=== PATIENT | male | born 1965 | race Caucasian/White ===

== ENCOUNTER 2016-09-08 17:10 | Emergency (ER) | payer OTHER ==
[~2016-09-08] VITALS: Ht 167.6 cm; Wt 130.0 kg
[~2016-09-08 17:10] MED LIST: DULOXETINE HCL30 MG PO; FORTAMET500 M1; GLIMEPIRIDE1 MG PO; LISINOPRIL-HCT1 EAC3 PO; LISINOPRIL10 MG PO; METFORMIN HCL1000 M1 PO; MIRTAZAPINE15 MG PO; MOBIC7.5 MG PO; ONGLYZA5 MG PO; TIZANIDINE HCL2 MG PO; VALIUM10 MG PO
[2016-09-08 17:37] LABS: POINT-OF-CARE METER ID UU14100415
[2016-09-08] MEDS ORDERED: SEROQUEL100 MG PO (17:43)
[2016-09-08 18:14] LABS: EOSINOPHIL (%) 3.8 % (0-5); EOSINOPHIL COUNT 0.4 K/uL (0-0.3); HEMATOCRIT 41.4 % (38.0-50.0); IMMATURE GRANULOCYTE (%) 0.3 % (0.0-0.7); IMMATURE GRANULOCYTE COUNT 0.3 K/uL; LYMPHOCYTE COUNT 1.4 K/uL (1.0-2.8); MCH 30.7 PG (29.0-34.0); MCHC 34.1 G/DL (30.0-36.0); MCV 90.2 FL (86-99); MONOCYTE (%) 10.4 % (3-12); MONOCYTE COUNT 1.1 K/uL (0-0.8); NEUTROPHIL (%) 71.5 % (45-76); NEUTROPHIL COUNT 7.4 K/uL (1.8-6.4); PLATELET COUNT 256 K/uL (156-360); RBC DIS.WIDTH-CV 13.4 % (11.8-14.6); RBC DIS.WIDTH-SD 43.5 % (39-53); RED BLOOD COUNT 4.59 M/uL (4.00-5.50); WHITE BLOOD COUNT 10.3 K/uL (4.1-10.2)
[2016-09-08 18:26] LABS: CHLORIDE 100 mEq/L (99-109); POTASSIUM 4.3 mEq/L (3.7-5.4); SODIUM 139 mEq/L (136-147)
[2016-09-08 18:27] LABS: GLUCOSE 143 mg/dL (70-99)
[2016-09-08 18:29] LABS: ANION GAP 12 MEQ/L (2-14)
[2016-09-08 18:31] LABS: GFR ESTIMATE (CALCULATED) > 59 mL/min/
[2016-09-08 18:32] LABS: UREA NITROGEN (BUN) 12 mg/dL (9-23)
[2016-09-08 18:36] LABS: TROP-I INTERPRETATION NEGATIVE; TROPONIN-I < 0.01 ng/mL (0.0-0.30)
[2016-09-08 19:58] LABS: ADD MIUA? NO; BILIRUBIN NEGATIVE; BLOOD NEGATIVE; COLOR YELLOW ((YELLOW)); GLUCOSE (STRIP) NEGATIVE; KETONES 5; LEUKOCYTES NEGATIVE; NITRITE NEGATIVE; PROTEIN (STRIP) NEGATIVE
[2016-09-08] MEDS ORDERED: INDOCIN50 MG PO (22:34)
[2016-09-08] MEDS ORDERED: VALIUM10 MG PO (22:34)
[2016-09-08 22:45] VITALS: BP 105/66
== END 2016-09-08 22:47 | disposition home or self-care (01) ==
LOC: EME 17:10
PROVIDERS: Emergency Medicine
DX: E11.649 Type 2 diabetes mellitus with hypoglycemia without coma (principal); R25.2 Cramp and spasm; I10 Essential (primary) hypertension; G89.29 Other chronic pain; Z87.442 Personal history of urinary calculi; K21.9 Gastro-esophageal reflux disease without esophagitis; Z79.84 Long term (current) use of oral hypoglycemic drugs
CPT/HCPCS: 71010; 80048; 81003; 82948; 84484; 85025; 99281; 99285; J1885; J3360; J7040

== ENCOUNTER 2017-02-15 15:04 | Inpatient (IN) | payer OTHER ==
[~2017-02-15] VITALS: Ht 175.3 cm; Wt 131.7 kg
[~2017-02-15 15:04] MED LIST changes: +INDOCIN50 MG PO; +SEROQUEL300 MG PO
[2017-02-15] MEDS ORDERED: VALIUM10 MG PO (15:26)
[2017-02-15] MEDS ORDERED: BUSPAR15 MG PO (15:26)
[2017-02-15 15:53] LABS: HEMATOCRIT 41.7 % (38.0-50.0); MCH 29.3 PG (29.0-34.0); MCHC 32.4 G/DL (30.0-36.0); MCV 90.5 FL (86-99); MEAN PLAT.VOLUME 10.1 uM^3 (9.0-12.4); PLATELET COUNT 230 K/uL (156-360); RBC DIS.WIDTH-CV 13.5 % (11.8-14.6); RBC DIS.WIDTH-SD 44.6 % (39-53); RED BLOOD COUNT 4.61 M/uL (4.00-5.50); WHITE BLOOD COUNT 7.6 K/uL (4.1-10.2)
[2017-02-15 16:03] LABS: CHLORIDE 97 mEq/L (99-109); POTASSIUM 4.3 mEq/L (3.7-5.4); SODIUM 136 mEq/L (136-147)
[2017-02-15 16:05] LABS: GLUCOSE 117 mg/dL (70-99)
[2017-02-15 16:07] LABS: ANION GAP 12 MEQ/L (2-14); TOTAL BILIRUBIN 0.5 mg/dL (0.0-1.0)
[2017-02-15 16:09] LABS: ALKALINE PHOSPHATASE 76 IU/L (3-129); GFR ESTIMATE (CALCULATED) > 59 mL/min/
[2017-02-15 16:10] LABS: UREA NITROGEN (BUN) 17 mg/dL (9-23)
[2017-02-15 16:11] LABS: DIRECT BILIRUBIN 0.2 mg/dL (0.0-0.3)
[2017-02-15 16:12] LABS: LIPASE 827 U/L (1.0-51.0)
[2017-02-15 16:15] LABS: TROP-I INTERPRETATION NEGATIVE; TROPONIN-I 0.02 ng/mL (0.0-0.30)
[2017-02-15 17:12] LABS: AMYLASE 49 IU/L (1-118)
[2017-02-15] MEDS ORDERED: CYMBALTA60 MG PO (17:21)
[2017-02-15] MEDS ORDERED: CYMBALTA30 MG PO (17:21)
[2017-02-15] MEDS ORDERED: CEPHALEXIN500 MG PO (17:22)
[2017-02-15] MEDS ORDERED: AMARYL1 MG PO (17:22)
[2017-02-15] MEDS ORDERED: BACTRIM,SEPT1 TABLET PO (17:23)
[2017-02-15] MEDS ORDERED: ATARAX,VISTARIL25 MG PO (17:23)
[2017-02-15] MEDS ORDERED: ALEVE220 MG PO (17:24)
[2017-02-15 19:50] VITALS: BP 130/80
[2017-02-15 23:47] VITALS: BP 133/80
[2017-02-16 01:09] LABS: POINT-OF-CARE METER ID UU14188625
[2017-02-16 03:32] VITALS: BP 124/58
[2017-02-16 05:54] LABS: POINT-OF-CARE METER ID UU14174225
[2017-02-16 06:26] LABS: HEMATOCRIT 38.5 % (38.0-50.0); MCH 29.8 PG (29.0-34.0); MCHC 32.5 G/DL (30.0-36.0); MCV 91.7 FL (86-99); MEAN PLAT.VOLUME 10.1 uM^3 (9.0-12.4); PLATELET COUNT 200 K/uL (156-360); RBC DIS.WIDTH-CV 13.6 % (11.8-14.6); RBC DIS.WIDTH-SD 46.2 % (39-53); WHITE BLOOD COUNT 6.3 K/uL (4.1-10.2)
[2017-02-16 06:48] LABS: ALKALINE PHOSPHATASE 59 IU/L (3-129); ANION GAP 4 MEQ/L (2-14); CHLORIDE 102 MEQ/L (99-109); GFR ESTIMATE (CALCULATED) > 59 mL/min/; GLUCOSE 99 mg/dL (70-99); HDL CHOLESTEROL 25 MG/DL (Desirable>=40); LDL CHOLESTEROL 97 mg/dL (Desirable<100); NON-HDL CHOLESTEROL 148 mg/dL (Desirable<160); POTASSIUM 4.6 MEQ/L (3.7-5.4); SAMPLE HEMOLYSIS CHECK 0; SAMPLE ICTERIC CHECK 0; SAMPLE LIPEMIA CHECK 0; SODIUM 138 MEQ/L (136-147); TOTAL BILIRUBIN 0.5 MG/DL (0.0-1.0); TOTAL CHOLESTEROL 173 mg/dL (Desirable<200); TRIGLYCERIDES 255 MG/DL (Normal: <150); UREA NITROGEN (BUN) 17 mg/dL (9-23)
[2017-02-16 08:56] VITALS: BP 140/68
[2017-02-16 11:27] VITALS: BP 124/62
[2017-02-16 12:01] LABS: POINT-OF-CARE METER ID UU14174225
[2017-02-16 15:37] VITALS: BP 146/74
[2017-02-16 17:18] LABS: POINT-OF-CARE METER ID UU14188625
[2017-02-16 19:41] VITALS: BP 136/74
[2017-02-16 23:27] VITALS: BP 129/68
[2017-02-17 03:47] VITALS: BP 139/71
[2017-02-17 06:35] LABS: HEMATOCRIT 35.9 % (38.0-50.0); MCH 29.6 PG (29.0-34.0); MCHC 32.3 G/DL (30.0-36.0); MCV 91.6 FL (86-99); MEAN PLAT.VOLUME 9.9 uM^3 (9.0-12.4); PLATELET COUNT 181 K/uL (156-360); RBC DIS.WIDTH-CV 13.4 % (11.8-14.6); RBC DIS.WIDTH-SD 45.5 % (39-53); RED BLOOD COUNT 3.92 M/uL (4.00-5.50); WHITE BLOOD COUNT 6.1 K/uL (4.1-10.2)
[2017-02-17 06:58] LABS: ANION GAP 5 MEQ/L (2-14); CHLORIDE 105 MEQ/L (99-109); GFR ESTIMATE (CALCULATED) > 59 mL/min/; GLUCOSE 115 mg/dL (70-99); POTASSIUM 4.3 MEQ/L (3.7-5.4); SAMPLE HEMOLYSIS CHECK 0; SAMPLE ICTERIC CHECK 0; SAMPLE LIPEMIA CHECK 0; SODIUM 138 MEQ/L (136-147); UREA NITROGEN (BUN) 15 mg/dL (9-23)
[2017-02-17 08:08] VITALS: BP 130/69
[2017-02-17 08:33] LABS: POINT-OF-CARE METER ID UU13113717
[2017-02-17 12:15] VITALS: BP 173/85
[2017-02-17 12:49] LABS: C DIFF TOXIN POSITIVE (NEGATIVE)
[2017-02-17 13:03] LABS: PROBE CHECK PASS
[2017-02-17 16:16] VITALS: BP 142/88
[2017-02-17 17:58] LABS: POINT-OF-CARE METER ID UU13113717
[2017-02-17 20:57] LABS: POINT-OF-CARE METER ID UU14188625
[2017-02-17 23:49] VITALS: BP 137/69
[2017-02-18 06:01] LABS: HEMATOCRIT 33.5 % (38.0-50.0); MCHC 33.1 G/DL (30.0-36.0); MCV 90.5 FL (86-99); PLATELET COUNT 160 K/uL (156-360); RBC DIS.WIDTH-CV 13.2 % (11.8-14.6); RBC DIS.WIDTH-SD 43.8 % (39-53); WHITE BLOOD COUNT 4.7 K/uL (4.1-10.2)
[2017-02-18 06:47] LABS: ALKALINE PHOSPHATASE 49 IU/L (3-129); ANION GAP 6 MEQ/L (2-14); CHLORIDE 106 MEQ/L (99-109); GFR ESTIMATE (CALCULATED) > 59 mL/min/; GLUCOSE 106 mg/dL (70-99); MAGNESIUM 1.6 mg/dl (1.3-2.7); POTASSIUM 4.2 MEQ/L (3.7-5.4); SAMPLE HEMOLYSIS CHECK 0; SAMPLE ICTERIC CHECK 0; SAMPLE LIPEMIA CHECK 0; SODIUM 140 MEQ/L (136-147); TOTAL BILIRUBIN 0.4 MG/DL (0.0-1.0); UREA NITROGEN (BUN) 12 mg/dL (9-23)
[2017-02-18 07:45] VITALS: BP 118/78
[2017-02-18 08:22] LABS: POINT-OF-CARE METER ID UU14188625
[2017-02-18 11:03] VITALS: BP 124/78
[2017-02-18 11:44] LABS: POINT-OF-CARE METER ID UU14188625
[2017-02-18 15:09] VITALS: BP 124/84
[2017-02-18 17:06] LABS: POINT-OF-CARE METER ID UU14188625
[2017-02-19] VITALS: BP 122/70
[2017-02-19 08:19] VITALS: BP 126/81
[2017-02-19] MEDS ORDERED: CYCLOBENZAPRINE10 MG PO (11:56)
[2017-02-19] MEDS ORDERED: IBUPROFEN400 MG PO (11:56)
[2017-02-19] MEDS ORDERED: METRONIDAZOLE500 MG PO (11:56)
== END 2017-02-19 13:45 | disposition home or self-care (01) | DRG 439 ==
LOC: EME 15:04 → EDOF 17:31 → 5SOUTH 17:31 → ENRESERV 17:32 → 5SOUTH 19:32
PROVIDERS: Internal Medicine; Physician Assistant
PROC: 5A09357 Assistance with Respiratory Ventilation, Less than 24 Consecutive Hours, Continuous Positive Airway Pressure (ICD-10-PCS; principal; 2017-02-16)
DX: K85.90 Acute pancreatitis without necrosis or infection, unspecified (principal); A04.7 Enterocolitis due to Clostridium difficile; Z68.41 Body mass index [BMI] 40.0-44.9, adult; E66.01 Morbid (severe) obesity due to excess calories; R16.0 Hepatomegaly, not elsewhere classified; M54.5 Low back pain; F32.9 Major depressive disorder, single episode, unspecified; R19.7 Diarrhea, unspecified; R60.9 Edema, unspecified; G47.33 Obstructive sleep apnea (adult) (pediatric); G89.29 Other chronic pain; I10 Essential (primary) hypertension; M48.06 Spinal stenosis, lumbar region; E11.9 Type 2 diabetes mellitus without complications; K76.0 Fatty (change of) liver, not elsewhere classified; K21.9 Gastro-esophageal reflux disease without esophagitis; Z87.442 Personal history of urinary calculi; Z90.49 Acquired absence of other specified parts of digestive tract; Z88.6 Allergy status to analgesic agent; I80.8 Phlebitis and thrombophlebitis of other sites; M21.371 Foot drop, right foot; Z79.84 Long term (current) use of oral hypoglycemic drugs
CPT/HCPCS: 71020; 72148; 74177; 76705; 80048; 80053; 80061; 80076; 82150; 82565; 82948; 83690; 83735; 84100; 84484; 84520; 85027; 86900; 86901; 87493; 93005; 93971; 94660; 99281; 99285; J1650; J1815; J1885; J2060; J2270; J2405; J3010; J7030; S0028; S0030

== ENCOUNTER 2017-06-26 09:58 | Emergency (ER) | payer OTHER ==
[~2017-06-26] VITALS: Ht 167.6 cm; Wt 145.6 kg
[~2017-06-26 09:58] MED LIST changes: +ALEVE220 MG PO; +AMARYL1 MG PO; +ATARAX,VISTARIL25 MG PO; +BACTRIM,SEPT1 TABLET PO; +BUSPAR15 MG PO; +CEPHALEXIN500 MG PO; +CYCLOBENZAPRINE10 MG PO; +CYMBALTA30 MG PO; +CYMBALTA60 MG PO; +IBUPROFEN400 MG PO; +METRONIDAZOLE500 MG PO
[2017-06-26 10:18] LABS: POINT-OF-CARE METER ID UU13113778
[2017-06-26 10:49] LABS: HEMATOCRIT 37.7 % (38.0-50.0); MCH 30.6 PG (29.0-34.0); MCHC 33.2 G/DL (30.0-36.0); MCV 92.4 FL (86-99); MEAN PLAT.VOLUME 10.1 uM^3 (9.0-12.4); PLATELET COUNT 211 K/uL (156-360); RBC DIS.WIDTH-CV 13.9 % (11.8-14.6); RBC DIS.WIDTH-SD 47.3 % (39-53); RED BLOOD COUNT 4.08 M/uL (4.00-5.50); WHITE BLOOD COUNT 12.9 K/uL (4.1-10.2)
[2017-06-26 11:03] LABS: CHLORIDE 97 mEq/L (99-109); POTASSIUM 4.2 mEq/L (3.7-5.4); SODIUM 134 mEq/L (136-147)
[2017-06-26 11:05] LABS: GLUCOSE 271 mg/dL (70-99)
[2017-06-26 11:06] LABS: ANION GAP 11 MEQ/L (2-14)
[2017-06-26 11:07] LABS: TOTAL BILIRUBIN 0.3 mg/dL (0.0-1.0)
[2017-06-26 11:08] LABS: ALKALINE PHOSPHATASE 74 IU/L (3-129)
[2017-06-26 11:09] LABS: GFR ESTIMATE (CALCULATED) > 59 mL/min/ (58.99-99999)
[2017-06-26 11:10] LABS: UREA NITROGEN (BUN) 10 mg/dL (9-23)
[2017-06-26 13:10] LABS: ADD MIUA? NO; BILIRUBIN NEGATIVE; BLOOD NEGATIVE; COLOR STRAW ((YELLOW)); GLUCOSE (STRIP) >=500; KETONES NEGATIVE; LEUKOCYTES NEGATIVE; NITRITE NEGATIVE; PROTEIN (STRIP) NEGATIVE; SPECIFIC GRAVITY 1.008 (1.000-1.030); UCUL ADDED? NO; UROBILINOGEN 0.2 MG/DL (0.2-1.0)
[2017-06-26 13:49] LABS: D-DIMER ELISA < 150.00 ng/mLDDU (<230)
[2017-06-26 14:00] LABS: TROP-I INTERPRETATION NEGATIVE; TROPONIN-I < 0.01 ng/mL (0.0-0.30)
[2017-06-26 15:56] LABS: TROP-I INTERPRETATION NEGATIVE; TROPONIN-I < 0.01 ng/mL (0.0-0.30)
[2017-06-26] MEDS ORDERED: SUCRALFATE1 GM PO (16:29)
[2017-06-26] MEDS ORDERED: OMEPRAZOLE40 M1 PO (16:29)
[2017-06-26 16:56] VITALS: BP 121/85
[2017-06-26 18:26] LABS: AMYLASE 37 IU/L (1-118)
[2017-06-26 18:35] LABS: LIPASE 29 U/L (1.0-51.0)
== END 2017-06-26 16:58 | disposition home or self-care (01) ==
LOC: EME 09:58
PROVIDERS: Physician Assistant
DX: R07.9 Chest pain, unspecified (principal)
CPT/HCPCS: 71020; 71275; 74174; 80053; 81003; 82150; 82948; 83690; 84484; 85027; 85379; 93005; 99281; 99284; J7030